=== PATIENT | male | born 1960 | race Caucasian/White ===

== ENCOUNTER 2025-03-21 00:45 | Outpatient (CLI) | payer MEDICARE, SELFPAY ==
--- NOTE | 2025-03-21 | DI.CTLCSR_ITS ---
Exam(s) CT CHEST LUNG CANCER SCREEN EXAM: CT CHEST LUNG CANCER SCREEN CLINICAL HISTORY: screening for lung cancer; Nicotine dependence F17.210 TECHNIQUE: Imaging Protocol: Axial computed tomography images with coronal and sagittal reformatted images were created and reviewed. Lung Computer Aided Detection (CAD) was utilized. COMPARISON: No exams were available for comparison FINDINGS: Tracheobronchial tree: Patent where visualized. No bronchiectasis. Pulmonary parenchyma: No consolidation or dominant measurable mass. No architectural distortion. Lung Nodules: No suspicious nodules are present. Mediastinum and Melina: No dominant adenopathy or fluid collection. The esophagus is unremarkable. Thyroid gland: Unremarkable. Lymph nodes: Unremarkable. Pleura: No effusion or pneumothorax. Heart: The heart is not dilated. Mild coronary artery calcification is present. 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 No pericardial effusion. Aorta: The ascending thoracic aorta measures 4.8 x 4.6 cm.Atherosclerotic calcification is present. Upper abdomen: Unremarkable. Soft Tissues: Unremarkable. Bones: Within normal limits. There are old healed left rib fractures. Sternal wires are in place. 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 IMPRESSION: 1. No suspicious pulmonary nodules. 2. Ascending thoracic aorta measuring 4.8 x 4.6 cm. Atherosclerotic calcification is present. Lung RADS Cat 1 - Negative: No nodules and definitely benign nodules Lung-RADS 1.0 CATEGORIES: Category 0 - Prior chest CT exam(s) being located for comparison. Category 1 - Annual screening in 12 months. No nodules or definitely benign nodules. Category 2 - Annual screening in 12 months. Benign appearance. Nodules with low likelihood of becomin g active cancer. Category 3 - 6-month follow-up. Probably benign. Short-term follow-up suggested. Nodules with low lik elihood of becoming active cancer. Category 4A - 3-month follow-up and CT/PET if >8 mm in size. Suspicious finding. Findings which requi re additional testing. Category 4B - Findings which require additional testing and tissue sampling. Suspicious finding. Category 4X - Category 3 or 4 nodules with additional features or imaging findings that increases the suspicion of malignancy. Modifier S- Potentially clinically significant finding. (Non lung cancer) Unexpected findings RADIATION DOSE DELIVERED: 32.21mGy.cm Total DLP 32.21mGy.cmTotal DLP DATA REPOSITORY: All CT scans at this facility are submitted to the National Radiology Data Registry (NRDR) Dose Index Registry (DIR) with the [employer] ([employer]). RADIATION OPTIMIZATION: All CT scans at this facility use at least one of these dose optimization te chniques: automated exposure control; mA and/or kV adjustment per patient size (includes targeted exa ms where dose is matched to clinical indication); or iterative reconstruction.
== END 2025-03-21 01:05 ==
LOC: DI 00:45
PROVIDERS: PCP Internal Medicine; Visit Provider Nurse Practitioner
DX: F17.210 Nicotine dependence, cigarettes, uncomplicated (principal); Z12.2 Encounter for screening for malignant neoplasm of respiratory organs
CPT/HCPCS: 71271

== ENCOUNTER → 2025-09-18 07:59 | Outpatient (BNVA) | payer MEDICARE, SELFPAY | PROVIDERS: PCP Internal Medicine; Referring Provider Internal Medicine; Visit Provider Psychiatry & Neurology Neurology | DX: M48.061 Spinal stenosis, lumbar region without neurogenic claudication (principal); M47.816 Spondylosis without myelopathy or radiculopathy, lumbar region; G62.9 Polyneuropathy, unspecified; R29.2 Abnormal reflex; F10.10 Alcohol abuse, uncomplicated; J44.9 Chronic obstructive pulmonary disease, unspecified; I10 Essential (primary) hypertension | CPT/HCPCS: 99205 ==

== ENCOUNTER → 2025-10-02 02:31 | Outpatient (CLI) | payer MEDICARE, SELFPAY ==
--- NOTE | 2025-10-02 14:55 | DI.MRI_ITS ---
Exam(s) MR LUMBAR SPINE WO EXAM: MR LUMBAR SPINE WO CLINICAL HISTORY: M48.061,M47.816 Lumbar spinal stenosis spondylosis, bilat radiculopathy. TECHNIQUE: Multiplanar multisequence MRI of the Lumbar spine was performed. COMPARISON: No exams were available for comparison FINDINGS: Bones: The last intervertebral disc space is designated the L5/S1 level for the numbering purpose of this examination. The vertebral body heights are well maintained. Alignment: Unremarkable. The marrow signal characteristics are unremarkable. There is a hemangioma in the T11 vertebral body. Cord: The conus tip ends at the T12 level. It is of normal size and signal intensity. There is epidural lipomatosis, greatest at the L5 and S1 levels causing some narrowing of the thecal sac. T12-L1: Normal disc height. No focal disc herniation is present. No central spinal canal stenosis.No neural foraminal stenosis. L1-2:Normal disc height. No focal disc herniation is present. No central spinal canal stenosis.No neural foraminal stenosis. L2-3:Moderate loss of disc height, eccentric toward the right. Endplate osteophytes and disc bulging, greater to the toward the right. Severe right and mild left neural foraminal narrowing. No focal disc herniation is present. No central spinal canal stenosis. L3-4: The disc has height is maintained. No disc bulging.No focal disc herniation is present. No central spinal canal stenosis.No neural foraminal stenosis. L4-5: Normal disc height. Mild disc bulging. No focal disc herniation is present. Facet degenerative changes cause mild to moderate right and moderate to severe left neural foraminal narrowing and mild central spinal canal stenosis. L5-S1: Asymmetric narrowing of the disc space eccentric toward the left where there are prominent osteophytes. Mild concentric disc bulging. no focal disc herniation is present. There are facet degenerative changes. No central spinal canal stenosis.Severe left and moderate right neural foraminal narrowing. The visualized SI joints and sacrum are unremarkable. Soft tissues: The paraspinal soft tissues are unremarkable. IMPRESSION: No degenerative disc changes and facet degenerative changes are present at L2-3, L4-5 and L5-S1, causing a bilateral neural foraminal narrowing, greatest on the left at L5-S1 and greatest on the right at L2-3. Mild central canal stenosis is present at L4-5 and L5-S1. DATA REPOSITORY:
== END ==
PROVIDERS: PCP Internal Medicine; Visit Provider Psychiatry & Neurology Neurology
DX: M48.062 Spinal stenosis, lumbar region with neurogenic claudication (principal)
CPT/HCPCS: 72148

== ENCOUNTER → 2025-10-20 08:45 | Outpatient (BNVA) | payer MEDICARE, SELFPAY | PROVIDERS: PCP Internal Medicine; Referring Provider Internal Medicine; Visit Provider Psychiatry & Neurology Neurology | DX: M48.061 Spinal stenosis, lumbar region without neurogenic claudication (principal); M47.816 Spondylosis without myelopathy or radiculopathy, lumbar region; G62.9 Polyneuropathy, unspecified; R29.2 Abnormal reflex; F10.10 Alcohol abuse, uncomplicated; I73.9 Peripheral vascular disease, unspecified | CPT/HCPCS: 95886; 95908; 99215 ==